=== PATIENT | female | born 1935 | race Hispanic/Latino ===

== ENCOUNTER 2021-01-17 14:02 | Emergency (ER) | payer OTHER ==
[2021-01-17 16:58] LABS: Absolute Lymphocytes (CBC) 1.3 K/uL (0.7-4.9); Basophils % 0.8 % (0-1.3); Hematocrit 39.9 % (36.0-45.0); Lymphocytes % 23.3 % (15.3-44.8); MPV 7.7 fL (7.6-11.3)
[2021-01-17 17:03] LABS: Protime INR 1.09
[2021-01-17 17:18] LABS: ALT/SGPT 27 U/L (12-78); AST/SGOT 20 U/L (15-37); Albumin 3.5 g/dL (3.4-5.0); Alkaline Phosphatase 93 U/L (45-117); BUN Blood Urea Nitrogen 8 mg/dL (7-18); Bicarbonate 28 mmol/L (21-32); Bilirubin Direct 0.2 mg/dL (0-0.2); Bilirubin Total 0.4 mg/dL (0.2-1.0); Glucose Level 160 mg/dL (74-106); Lipase 41 U/L (73-393); Magnesium 1.9 mg/dL (1.8-2.4); Potassium 3.6 mmol/L (3.5-5.1); Protein, Total 6.8 g/dL (6.4-8.2); Sodium Level 138 mmol/L (136-145)
--- NOTE | 2021-01-17 18:10 | RAD REPORT ---
EXAM DESCRIPTION: CT - Abdomen Pelvis W Contrast - 01/17/2021 5:50 pm CLINICAL HISTORY: Abdominal pain COMPARISON: none. TECHNIQUE: Computed axial tomography of the abdomen pelvis was obtained. 100 cc Isovue-300 was admin istered intravenously. Oral contrast was not requested which limits evaluation of bowel. All CT scans are performed using dose optimization technique as appropriate and may include automated exposure control or mA/KV adjustment according to patient size. FINDINGS: Fatty liver. Several low-density lesions are present within the liver. They vary in size f rom a few millimeters to 18 millimeters. Spleen, pancreas, adrenal and kidneys appear unremarkable. There is no evidence of diverticulitis. Normal appendix. An umbilical hernia contains fat. The neck measures 12 millimeters. The hernia sac measures 4.6 centi meters. Spondylosis L5-S1 IMPRESSION: Hepatic lesions. These probably represent benign complex cysts. However as cystic neopla sm can have a similar appearance, it is recommended that the patient have a followup ultrasound in 3 months for re-evaluation. Fatty liver Umbilical hernia
[2021-01-17] MEDS ORDERED: ONDANSETRON 4 MG/2 ML VIAL ONE (18:52)
[2021-01-17] MEDS ORDERED: NA CHLORIDE 0.9% 250 ML ONE (18:52)
[2021-01-17] MEDS ORDERED: FAMOTIDINE 20 MG/2 ML VIAL IV ONE (18:52)
--- NOTE | 2021-01-17 19:21 | RAD REPORT ---
EXAM DESCRIPTION: Price Single View01/17/2021 5:03 pm CLINICAL HISTORY: Cough COMPARISON: none FINDINGS: The lungs appear clear of acute infiltrate. The heart is normal size IMPRESSION: No acute abnormalities displayed
--- NOTE | 2021-01-17 19:27 | ER ---
Nurse's Notes [facility] Name: Preethi Merrill Age: 85 yrs Sex: Female : 1935 Arrival Date: 01/17/2021 Time: 14:08 Bed 7 Private MD: Diagnosis: Diarrhea, unspecified;Nausea and vomiting Presentation: 01/17 14:21 Chief complaint: Patient states: Diarrhea for the past 2 days. Reports feeling weak and aa5 shaky. Denies abdominal pain. Coronavirus screen: Client denies travel out of the [place] in the last 14 days. At this time, the client does not indicate any symptoms associated with coronavirus-19. Ebola Screen: Patient denies travel to an Ebola-affected area in the 21 days before illness onset. Initial Sepsis Screen: Does the patient meet any 2 criteria? HR > 90 bpm. No. Patient's initial sepsis screen is negative. Does the patient have a suspected source of infection? No. Patient's initial sepsis screen is negative. Risk Assessment: Do you want to hurt yourself or someone else? Patient reports no desire to harm self or others. Onset of symptoms was January 2021. 14:21 Method Of Arrival: Ambulatory aa5 14:21 Acuity: LAILA 3 aa5 Triage Assessment: 14:24 General: Appears in no apparent distress. comfortable, Behavior is calm, cooperative, aa5 appropriate for age. Pain: Denies pain. Neuro: Level of Consciousness is awake, alert, obeys commands. Cardiovascular: Patient's skin is warm and dry. Respiratory: Airway is patent Respiratory effort is even, unlabored, Respiratory pattern is regular, symmetrical. GI: Reports diarrhea. Historical: - Allergies: 14:24 No Known Allergies; aa5 - Home Meds: 14:24 Albuterol Inhl [Active]; aa5 - PMHx: 14:24 Hypertension; Diabetes - NIDDM; aa5 - Immunization history:: Adult Immunizations up to date. - Social history:: Smoking status: Patient reports the use of cigarette tobacco products, smokes one-half pack cigarettes per day. Screenin:15 Abuse screen: Denies threats or abuse. Denies injuries from another. Nutritional bp screening: No deficits noted. Tuberculosis screening: No symptoms or risk factors identified. Fall Risk None identified. Assessment: 16:15 General: SEE TRIAGE NOTE. bp 17:30 Reassessment: Patient appears in no apparent distress at this time. No changes from bp previously documented assessment. Patient and/or family updated on plan of care and expected duration. Pain level reassessed. 18:30 Reassessment: No changes from previously documented assessment. Patient and/or family bp updated on plan of care and expected duration. Pain level reassessed. PT ASSISTED TO BATHROOM BY FAMILY. 19:51 Reassessment: Patient and/or family updated on plan of care and expected duration. Pain ea level reassessed. Patient is alert, oriented x 3, equal unlabored respirations, skin warm/dry/pink. Discharge instruction given to patient verbalized the understanding of instruction. Pt left ED ambulatory accompanied by family member Patient states feeling better. Vital Signs: 14:21 BP 124 / 71; Pulse 97; Resp 20; Temp 97.0(O); Pulse Ox 96% on R/A; Weight 81.65 kg (R); aa5 Height 5 ft. 3 in. (160.02 cm) (R); Pain 0/10; 16:30 BP 131 / 69; Pulse 95; Resp 17; Pulse Ox 97% ; bp 18:46 BP 136 / 99; Pulse 78; Resp 18; Pulse Ox 97% on R/A; tr6 19:30 BP 126 / 80; Pulse 89; Resp 18; Pulse Ox 97% ; ea 14:21 Body Mass Index 31.89 (81.65 kg, 160.02 cm) aa5 ED Course: 14:08 Patient arrived in ED. as 14:23 Triage completed. aa5 14:24 Arm band placed on Patient placed in waiting room, Patient notified of wait time. aa5 16:15 Patient has correct armband on for positive identification. Bed in low position. Call bp light in reach. Side rails up X2. 16:21 Dinesh Ellis PA is PHCP. cp 16:21 Dinesh Jordan MD is Attending Physician. cp 16:50 Inserted saline lock: 20 gauge in right antecubital area, using aseptic technique. mt Blood collected. 17:03 XRAY Chest (1 view) In Process Unspecified. EDMS 17:50 CT Abd/Pelvis - IV Contrast Only In Process Unspecified. EDMS 18:28 Dima Moreland, RN is Primary Nurse. bp 18:46 No provider procedures requiring assistance completed. tr6 19:50 IV discontinued, intact, bleeding controlled, No redness/swelling at site. Pressure ea dressing applied. Administered Medications: 18:47 Drug: Zofran (Ondansetron) 4 mg Route: IVP; Site: right antecubital; tr6 18:53 Follow up: Response: No adverse reaction; Pain is decreased; Nausea is decreased tr6 18:47 Drug: NS 0.9% 250 ml Route: IV; Rate: bolus; Site: right antecubital; tr6 18:47 Drug: Pepcid (famotidine) 20 mg Route: IVP; Site: right antecubital; tr6 18:54 Follow up: Response: No adverse reaction tr6 19:25 Drug: Cipro (ciprofloxacin) 500 mg Route: PO; ea Outcome: 19:26 Discharge ordered by MD. cp 19:50 Discharged to home ambulatory, with family. ea 19:50 Condition: stable 19:50 Discharge instructions given to patient, Instructed on discharge instructions, follow up and referral plans. medication usage, Demonstrated understanding of instructions, follow-up care, medications, Prescriptions given X 3. 19:52 Patient left the ED. ea Signatures: Dispatcher [employer] EDMS Nina Berry Audri, RN RN aa5 Dinesh Ellis PA PA cp Thompson, Moriah mt Antunez, Elena, RN RN ea Peltier, Brian, RN RN bp Ramnanan, Tiffany, RN RN tr6
--- NOTE | 2021-01-17 19:27 | EDPHYS ---
Physician Documentation [facility] Name: Preethi Merrill Age: 85 yrs Sex: Female : 1935 Arrival Date: 01/17/2021 Time: 14:08 Bed 7 Private MD: ED Physician Dinesh Jordan HPI: 01/17 16:45 This 85 yrs old Female presents to ER via Ambulatory with complaints of cp Diarrhea. 16:45 The patient presents to the emergency department with nausea, that is mild, vomiting, cp that is intermittent, diarrhea, that is continuous. Onset: The symptoms/episode began/occurred 3 day(s) ago. 16:45 Associated signs and symptoms: Pertinent positives: nausea, vomiting, Pertinent cp negatives: abdominal pain, constipation, fever, GI bleeding. Patient reports recently returning from [facility] to [place] to visit family. Historical: - Allergies: 14:24 No Known Allergies; aa5 - Home Meds: 14:24 Albuterol Inhl [Active]; aa5 - PMHx: 14:24 Hypertension; Diabetes - NIDDM; aa5 - Immunization history:: Adult Immunizations up to date. - Social history:: Smoking status: Patient reports the use of cigarette tobacco products, smokes one-half pack cigarettes per day. ROS: 16:50 Constitutional: Negative for body aches, chills, fever, poor PO intake. cp 16:50 Eyes: Negative for injury, pain, redness, and discharge. cp 16:50 Cardiovascular: Negative for chest pain, edema, palpitations. 16:50 Respiratory: Positive for cough, Negative for shortness of breath, wheezing. 16:50 Abdomen/GI: Positive for nausea, vomiting, and diarrhea, Negative for abdominal pain, constipation, hematemesis, rectal bleeding. 16:50 Back: Negative for pain at rest, pain with movement. 16:50 Neuro: Positive for general weakness, Negative for altered mental status, headache. 16:50 All other systems are negative. Exam: 16:55 Constitutional: The patient appears in no acute distress, alert, awake, cp non-diaphoretic, non-toxic, well developed, well nourished. 16:55 Head/Face: Normocephalic, atraumatic. cp 16:55 Eyes: Periorbital structures: appear normal, Conjunctiva: normal, no exudate, no injection, Sclera: no appreciated abnormality, Lids and lashes: appear normal, bilaterally. 16:55 ENT: External ear(s): are unremarkable, Nose: is normal, Mouth: Lips: moist, Oral mucosa: moist, Posterior pharynx: Airway: no evidence of obstruction, patent. 16:55 Chest/axilla: Inspection: normal, Palpation: is normal, no crepitus, no tenderness. 16:55 Cardiovascular: Rate: normal, Rhythm: regular. 16:55 Respiratory: the patient does not display signs of respiratory distress, Respirations: normal, no use of accessory muscles, no retractions, labored breathing, is not present, Breath sounds: are clear throughout, no decreased breath sounds, no stridor, no wheezing. 16:55 Abdomen/GI: Inspection: abdomen appears normal, Bowel sounds: active, all quadrants, Palpation: abdomen is soft and non-tender, in all quadrants, rebound tenderness, is not appreciated, voluntary guarding, is not appreciated, involuntary guarding, is not appreciated. 16:55 Back: pain, is absent, ROM is normal. 16:55 Neuro: Orientation: to person, place \T\ time. Mentation: is normal, Motor: moves all fours, strength is normal. Vital Signs: 14:21 BP 124 / 71; Pulse 97; Resp 20; Temp 97.0(O); Pulse Ox 96% on R/A; Weight 81.65 kg (R); aa5 Height 5 ft. 3 in. (160.02 cm) (R); Pain 0/10; 16:30 BP 131 / 69; Pulse 95; Resp 17; Pulse Ox 97% ; bp 18:46 BP 136 / 99; Pulse 78; Resp 18; Pulse Ox 97% on R/A; tr6 19:30 BP 126 / 80; Pulse 89; Resp 18; Pulse Ox 97% ; ea 14:21 Body Mass Index 31.89 (81.65 kg, 160.02 cm) aa5 MDM: 16:21 Patient medically screened. cp 17:00 Differential diagnosis: gastritis, viral gastroenteritis, gastroenteritis, colitis, cp dehydration. 19:25 Data reviewed: vital signs, nurses notes, lab test result(s), radiologic studies, CT cp scan, plain films. 19:25 Test interpretation: by ED physician or midlevel provider: plain radiologic studies. cp Counseling: I had a detailed discussion with the patient and/or guardian regarding: the historical points, exam findings, and any diagnostic results supporting the discharge/admit diagnosis, lab results, radiology results, to return to the emergency department if symptoms worsen or persist or if there are any questions or concerns that arise at home. Response to treatment: the patient's symptoms have markedly improved after treatment, patient is well hydrated. VSS. Nausea improved and vomiting resolved. Patient tolerating po meds and fluids. Will discharge to home for continued monitoring. 01/17 16:41 Order name: Basic Metabolic Panel 01/17 16:41 Order name: CBC with Diff cp 01/17 16:41 Order name: Hepatic Function cp 01/17 16:41 Order name: Lipase 01/17 16:41 Order name: PT-INR cp 01/17 16:41 Order name: Occult Blood cp 01/17 16:41 Order name: Magnesium; Complete Time: 18:01 01/17 16:42 Order name: Basic Metabolic Panel; Complete Time: 18:01 EDMA 01/17 18:01 Interpretation: Normal except: GLUC 160; CRE 0.45. cp 01/17 16:42 Order name: CBC with Automated Diff; Complete Time: 18:01 EDMS 01/17 16:42 Order name: Liver (Hepatic) Function; Complete Time: 18:01 EDMS 01/17 16:42 Order name: Lipase; Complete Time: 18:01 EDMA 01/17 18:02 Interpretation: LIP 41; Reviewed. 01/17 16:41 Order name: IV Saline Lock; Complete Time: 16:51 cp 01/17 16:41 Order name: Labs collected and sent; Complete Time: 16:51 cp 01/17 16:41 Order name: XRAY Chest (1 view); Complete Time: 19:26 cp 01/17 16:41 Order name: CT Abd/Pelvis - IV Contrast Only; Complete Time: 19:04 cp 01/17 16:42 Order name: Protime (+INR); Complete Time: 18:01 EDMA 01/17 19:05 Order name: PO challenge; Complete Time: 19:28 cp Administered Medications: 18:47 Drug: Zofran (Ondansetron) 4 mg Route: IVP; Site: right antecubital; tr6 18:53 Follow up: Response: No adverse reaction; Pain is decreased; Nausea is decreased tr6 18:47 Drug: NS 0.9% 250 ml Route: IV; Rate: bolus; Site: right antecubital; tr6 18:47 Drug: Pepcid (famotidine) 20 mg Route: IVP; Site: right antecubital; tr6 18:54 Follow up: Response: No adverse reaction tr6 19:25 Drug: Cipro (ciprofloxacin) 500 mg Route: PO; ea Disposition: 01/18 07:10 Co-signature as Attending Physician, Dinesh Jordan MD I agree with the assessment and aníbal plan of care. Disposition: 01/17/21 19:26 Discharged to Home. Impression: Diarrhea, unspecified, Nausea and vomiting. - Condition is Stable. - Discharge Instructions: Food Choices to Help Relieve Diarrhea, Adult, Diarrhea, Adult, Nausea and Vomiting, Adult, Food Poisoning and Traveling. - Prescriptions for Zofran 4 mg Oral Tablet - take 1 tablet by ORAL route every 12 hours As needed; 20 tablet. Cipro 500 mg Oral Tablet - take 1 tablet by ORAL route every 12 hours for 7 days; 14 tablet. Bentyl 20 mg Oral Tablet - take 1 tablet by ORAL route every 6 hours As needed; 20 tablet. - Medication Reconciliation Form, Thank You Letter, Antibiotic Education, Prescription Opioid Use form. - Follow up: Private Physician; When: 2 - 3 days; Reason: Worsening of condition. - Problem is new. - Symptoms have improved. Signatures: Dispatcher [employer] EDDinesh Quiroga MD MD cha Calderon, Audri, RN RN aa5 Dinesh Ellis PA PA Maritza Otto RN Helena Barnes ea, RN RN tr6 Corrections: (The following items were deleted from the chart) 01/17 19:52 19:26 01/17/2021 19:26 Discharged to Home. Impression: Diarrhea, unspecified; Nausea ea and vomiting. Condition is Stable. Forms are Medication Reconciliation Form, Thank You Letter, Antibiotic Education, Prescription Opioid Use. Follow up: Private Physician; When: 2 - 3 days; Reason: Worsening of condition. Problem is new. Symptoms have improved. cp
[2021-01-17] MEDS ORDERED: CIPROFLOXACIN HCL 500 MG TAB ONE (19:42)
[2021-01-17 20:02] VITALS: TEMP 97
[2021-01-17 20:05] VITALS: O2SAT 97
[2021-01-17 20:25] VITALS: BP 126/80
== END 2021-01-17 19:52 | disposition home or self-care (01) ==
LOC: ER 14:02
DX: R19.7 Diarrhea, unspecified (principal); R11.2 Nausea with vomiting, unspecified; I10 Essential (primary) hypertension; F17.210 Nicotine dependence, cigarettes, uncomplicated
CPT/HCPCS: 85025; 80048; 36415; 83735; 85610; 80076; 83690; 74177; 71045; 96375; 96374; 99284; Q9967; J7050; J2405